=== PATIENT | female | born 1995 | race Caucasian/White ===

== ENCOUNTER 2022-01-03 20:40 | Observation (INO) ==
[2022-01-03] MEDS ORDERED: 0.9 % SODIUM CHLORIDE 1,000 ML IV ONE (20:59)
[2022-01-03 21:19] LABS: Basophils # (Auto) 0.03 K/mcL (0.00-0.30); Basophils % (Auto) 0.2 % (0.0-2.0); Eosinophils # (Auto) 0 K/mcL (0.00-0.70); Eosinophils % (Auto) 0 % (0.0-7.0); Hematocrit 42.8 % (34.1-44.9); Hemoglobin 13.9 g/dL (11.2-15.7); Lymphocytes % (Auto) 4.7 % (15.5-49.0); Mean Cell Volume 89.7 fL (80.0-100.0); Mean Corpuscular HGB Conc 32.5 g/dL (31.0-36.0); Mean Platelet Volume 11.3 fL (7.4-10.4); Monocytes # (Auto) 0.13 K/mcL (0.10-0.90); Monocytes % (Auto) 0.8 % (1.0-12.0); Neutrophils % (Auto) 94.3 % (38.0-78.0); Platelet Count 380 K/mcL (140-440); RBC 4.77 M/mcL (3.59-5.38); Red Cell Distribution Width 12.5 % (11.5-14.5)
[2022-01-03] MEDS ORDERED: ONDANSETRON 4 MG/2 ML VIAL IV ONE (21:36)
[2022-01-03] MEDS ORDERED: LACTATED RINGERS 1,000 ML IV ONE (21:36)
--- NOTE | 2022-01-03 21:40 | Emergency Department Note ---
HPI General Chief complaint: Nausea/Vomiting/Diarrhea Stated complaint: n/v/d Time Seen by Provider: 01/03/22 20:59 Source: patient Mode of arrival: ambulatory Limitations: no limitations History of Present Illness HPI Narrative: Narrative: 18-year-old type I diabetic presenting to the ED nausea vomiting diarrhea hyperglycemia. Has had DKA in the past feels similar. States she is compliant on her insulin but does admit her sugars have been high recently poorly controlled 200-300 range. She went to the bar last night had a few drinks while playing darts and then woke up this morning around 3 AM with nausea vomiting diarrhea. She is not a frequent drinker no history of withdrawal. No recent medication changes or insulin changes no other chronic medical problems. No other acute complaints. No fevers no URI symptoms no chest pain no shortness of breath no cough has some mild generalized abdominal cramps but no focal abdominal pain, no urinary symptoms no vaginal symptoms. Last menstrual period is now. She says the cause of her previous DKAwas always attributed to simply poor glucose management. No other complaints Related Data Home Medications Medication Instructions Recorded Confirmed insulin glargine 100 unit/mL 15 unit SQ BID 04/19/15 10/09/19 subcutaneous solution insulin lispro 100 unit/mL 0 unit SQ ACHS 04/19/15 10/09/19 subcutaneous solution norethindrone (contraceptive) 0.35 mg 02/11/16 02/11/16 [Jencycla] Previous Rx's Medication Instructions Recorded promethazine 12.5 mg tablet 12.5 mg PO 3-4XD #10 tab 10/09/19 Allergies Allergy/AdvReac Type Severity Reaction Status Date / Time Amoxicillin [AMOXICILLIN] Allergy Unknown ANAPHYLAXIS Verified 10/09/19 06:58 Review of Systems ROS ROS Narrative: Narrative: At least 10 systems reviewed and otherwise acutely negative except as in the HPI PFSH Narrative Patient History Narrative: Narrative: Medical/Surgical/Family History All Active Problems (Updated 01/03/22 @ 21:52 by Dayo Bush DO) Dehydration (Acute) DKA, type 1 (Acute) History of diabetes with ketoacidosis (Chronic) Type 1 diabetes mellitus (Chronic) Type 1 diabetes mellitus with hyperglycemia (Chronic) Microalbuminuric diabetic nephropathy (Chronic) Non-compliant behavior (Chronic) Medical History History of diabetes with ketoacidosis Ingrown left big toenail Kidney pain Occasional in high stress situations Microalbuminuric diabetic nephropathy Non-compliant behavior Noncompliant with home glucose monitoring Type 1 diabetes mellitus Type 1 diabetes mellitus with hyperglycemia Urinary tract infection Vitamin D deficiency Surgical History No pertinent past surgical history Family History Other No pertinent family history Social History Smoking Status: Never smoker Exam Narrative Narrative: Narrative: Constitutional: normally developed, appears ill. Head: Normocephalic, atraumatic, Eyes: No Icterus, ENT: Dry mucus membranes, Neck: Supple, Cardiac: Tachycardic heart sounds, palpable radial pulses, no peripheral edema Pulmonary: Normal respiratory effort. Breath sounds clear, no wheeze, rhonchi, rales, Gastrointestinal: Abdomen soft, non-distended, non-tender, Musculoskeletal: No gross deformities, well perfused Skin: warm, dry Neuro: Alert and oriented. General Limitations: no limitations Course Vital Signs Vital signs: Vital Signs Temperature 36.7 C 01/03/22 20:41 Pulse Rate 110 H 01/03/22 20:41 Respiratory Rate 18 01/03/22 20:41 Blood Pressure 153/88 01/03/22 20:41 Pulse Oximetry (%) 100 01/03/22 20:41 Temperature 36.7 C 01/03/22 20:41 Pulse Rate 101 H 01/03/22 21:51 Respiratory Rate 12 01/03/22 21:51 Blood Pressure 144/78 01/03/22 21:51 Pulse Oximetry (%) 100 01/03/22 21:51 MDM MDM Narrative Medical decision making narrative: Narrative: Type I diabetic hyperglycemic tachycardic most concerning for DKA work-up is initiated. She has received 1 L of NS which was already initiated. We will give her a second liter of LR Accu-Chek in the 300s awaiting further diagnostic results Blood gas does show metabolic acidosis pH 7.23 PCO2 of 31 and bicarb of 13 CBC leukocytosis of 17 likely reactive patient has no infectious complaints Electrolytes show anion gap metabolic acidosis, glucose 350, anion gap 25, bicarb 13, potassium normal 4.3 Twelve-lead EKG sinus tach 101 HI, QRS, QTc within normal, there is no acute ischemia no obvious hyperkalemic changes Presentation consistent with acute DKA we did start insulin drip she is receiving IV fluids and will continue to monitor closely every hour Accu-Cheks, will start replenishing potassium as we initiate insulin. I spoke with the hospitalist who accepts admission to ICU. pt agreeable Critical Care Time Total CriticalCare time was at least 35 minutes, excluding separately reportable procedures. There was a high probability of clinically significant/life threatening det erioration in the patient's condition which required my urgent intervention. Lab Data Result diagrams: 01/03/22 20:49 01/03/22 20:52 Labs: Lab Results 01/03/22 01/03/22 Range/Units 20:49 20:52 WBC 17.0 H (4.5-11.0) K/mcL RBC 4.77 (3.59-5.38) M/mcL Hgb 13.9 (11.2-15.7) g/dL Hct 42.8 (34.1-44.9) % MCV 89.7 (80.0-100.0) fL MCH 29.1 (26.0-34.0) pg MCHC 32.5 (31.0-36.0) g/dL RDW 12.5 (11.5-14.5) % Plt Count 380 (140-440) K/mcL MPV 11.3 H (7.4-10.4) fL Neut % (Auto) 94.3 H (38.0-78.0) % Lymph % (Auto) 4.7 L (15.5-49.0) % [place] % (Auto) 0.8 L (1.0-12.0) % Eos % (Auto) 0 (0.0-7.0) % Baso % (Auto) 0.2 (0.0-2.0) % Lymph # (Auto) 0.80 L (1.50-4.80) K/mcL [place] # (Auto) 0.13 (0.10-0.90) K/mcL Eos # (Auto) 0 (0.00-0.70) K/mcL Baso # (Auto) 0.03 (0.00-0.30) K/mcL Absolute Neutrophils 16.08 H (1.80-8.00) K/mcL Sodium 135 (133-145) mmol/L Potassium 4.3 (3.3-5.1) mmol/L Chloride 97 (96-108) mmol/L Carbon Dioxide 13 L (22-30) mmol/L Anion Gap 25.0 H (8.0-16.0) BUN 12 (6-20) mg/dL Creatinine 0.7 (0.6-1.1) mg/dL GFR Calculation 117 Glucose 350 H (70-105) mg/dL Calcium 9.6 (8.6-10.4) mg/dL Total Bilirubin 0.3 (0.1-1.0) mg/dL AST 27 (<32) U/L ALT 25 (<40) U/L Alkaline Phosphatase 84 (39-117) U/L Total Protein 7.8 (5.9-8.4) gm/dL Albumin 4.8 (3.2-5.2) gm/dL Globulin 3.0 (2.2-3.7) gm/dL Albumin/Globulin Ratio 1.6 (1.0-2.3) ED POC Tests ED POC Tests: HCG POC Results Negative Discharge Plan Patient/Caregiver Discharge Instructions Pt seen by COOKY PACKER/PA only: No Clinical Impression: DKA, type 1 Patient Disposition: Xfer As Inpt ([facility]) Condition: Critical Follow up with: Provider,Other [Primary Care Provider] - Prescriptions: No Action norethindrone (contraceptive) 0.35 mg 0RF insulin lispro 1 UNIT/0.01 ML unit 0 unit SQ ACHS 0RF insulin glargine 1 UNIT/0.01 ML unit 15 unit SQ BID 0RF promethazine 12.5 MG tablet 12.5 mg PO 3-4XD Qty: 10 0RF
[2022-01-03 21:42] LABS: ALT/SGPT 25 U/L (<40); AST/SGOT 27 U/L (<32); Albumin 4.8 gm/dL (3.2-5.2); Albumin/Globulin Ratio 1.6 (1.0-2.3); Alkaline Phosphatase 84 U/L (39-117); Bilirubin,Total 0.3 mg/dL (0.1-1.0); Blood Urea Nitrogen 12 mg/dL (6-20); Calcium 9.6 mg/dL (8.6-10.4); Carbon Dioxide 13 mmol/L (22-30); Chloride 97 mmol/L (96-108); Glomerular Filtration Rate 117; Glucose 350 mg/dL (70-105)
[2022-01-03] MEDS ORDERED: POTASSIUM CHLORIDE 20 MEQ in DEXTROSE 5% IN WATER 250 ML IV ONE (22:00)
[2022-01-03] MEDS ORDERED: INSULIN REGULAR, HUMAN 50 UNIT in 0.9 % SODIUM CHLORIDE 99.5 ML IV SCH (22:00)
[2022-01-03] MEDS ORDERED: POTASSIUM CHLORIDE 40 MEQ in DEXTROSE 5% IN WATER 500 ML IV PRN (22:35)
[2022-01-03] MEDS ORDERED: ACETAMINOPHEN 325 MG TABLET PO PRN (22:38)
--- NOTE | 2022-01-03 22:44 | Internal Med History&Physical ---
HPI History of Present Illness Patient information: Note initiated : 01/03/22 at 10:40 pm Service Date, if different from initiated Date: [] Patient: Rafaela Candelaria a 26 y/o F admitted on for n/v/d. Chief Complaint: [] Chief complaint: Nausea, vomiting, History of present illness: Ms. Candelaria is a 26 year old F with past medical history of type 1 diabetes mellitus, who presents to ER today with nausea vomiting and symptoms of DKA. She has had DKA twice in the past and reports this symptoms are similar. She went to the bar last night and had a few drinks, woke up this morning around 3 AM with symptoms as above. She is very adherent with her insulin regimen. Prior to her arrival to ER, she injected 18 units of Lantus and 4 units of Humalog. She has had 2 L of IV fluid boluses at this time and states she still feels dehydrated lousy. Denies any abdominal pain. Denies any fevers, chills, pain. Smokes occasional marijuana. Once a week drinker. No other drug use. Constitutional Constitutional: Absent anorexia, chills, fatigue, fever(s), headache(s), lethargy, malaise or night sweats Cardiovascular Cardiovascular: Absent chest pain, chest pain at rest, diaphoresis, irregular heart rhythm or lightheadedness Respiratory Respiratory: Absent hemoptysis, wheezing or excessive phlegm production Gastrointestinal Gastrointestinal: Absent diarrhea, hematemesis, melena, nausea or vomiting Genitourinary Genitourinary: Absent dysuria Neurological Neurological: Absent abnormal gait, abnormal speech, confusion, dizziness or headache(s) PFSH PFSH All Active Problems Dehydration (Acute) DKA, type 1 (Acute) History of diabetes with ketoacidosis (Chronic) Type 1 diabetes mellitus (Chronic) Type 1 diabetes mellitus with hyperglycemia (Chronic) Microalbuminuric diabetic nephropathy (Chronic) Non-compliant behavior (Chronic) Medical History History of diabetes with ketoacidosis Ingrown left big toenail Kidney pain Occasional in high stress situations Microalbuminuric diabetic nephropathy Non-compliant behavior Noncompliant with home glucose monitoring Type 1 diabetes mellitus Type 1 diabetes mellitus with hyperglycemia Urinary tract infection Vitamin D deficiency Surgical History No pertinent past surgical history Family History Other No pertinent family history MEDS/ALLERGIES Home Medications and Allergies Home Medications Medication Instructions Recorded Confirmed Type insulin glargine 100 unit/mL 15 unit SQ BID 04/19/15 10/09/19 History subcutaneous solution insulin lispro 100 unit/mL 0 unit SQ ACHS 04/19/15 10/09/19 History subcutaneous solution norethindrone (contraceptive) 0.35 mg 02/11/16 02/11/16 History [Jencycla] promethazine 12.5 mg tablet 12.5 mg PO 3-4XD #10 tab 10/09/19 Rx Allergies Allergy/AdvReac Type Severity Reaction Status Date / Time Amoxicillin [AMOXICILLIN] Allergy Unknown ANAPHYLAXIS Verified 10/09/19 06:58 EXAM Constitutional Vitals: Temp Pulse Resp BP Pulse Ox 98.1 F 101 H 12 144/78 100 01/03/22 20:41 01/03/22 21:51 01/03/22 21:51 01/03/22 21:51 01/03/22 21:51 General appearance: average body habitus, cooperative and no acute distress Head Head exam: Present atraumatic and normocephalic Eye Eye exam: Present normal appearance ENT ENT exam: Present mucous membranes moist Respiratory Respiratory exam: Present normal respiratory exam and CTAB; Absent accessory muscle use, rales, respiratory distress, stridor or wheezes Cardiovascular Cardiovascular exam: Present RRR and tachycardia; Absent normal rate and rhythm, bradycardia, diastolic murmur, gallop, irregular rhythm or rubs GI/Abdominal GI/Abdominal exam: Present normal bowel sounds and soft; Absent distended, guarding or rebound Expanded Lower Extremity Exam Hip exam: Present normal inspection; Absent swelling Back Exam Back exam: Present normal inspection; Absent CVA tenderness (L), CVA tenderness (R), paraspinal tenderness or vertebral tenderness Neurological Exam Neurological exam: Present alert and oriented X3; Absent abnormal gait or motor sensory deficit DATA Data Completed and Pending Labs: Labs from last 24 hours 01/03/22 01/03/22 01/03/22 20:52 20:52 20:52 WBC RBC Hgb Hct MCV MCH MCHC RDW Plt Count MPV Neut % (Auto) Lymph % (Auto) [place] % (Auto) Eos % (Auto) Baso % (Auto) Lymph # (Auto) [place] # (Auto) Eos # (Auto) Baso # (Auto) Absolute Neutrophils Sodium 135 Potassium 4.3 Chloride 97 Carbon Dioxide 13 L Anion Gap 25.0 H BUN 12 Creatinine 0.7 GFR Calculation 117 Glucose 350 H Calcium 9.6 Total Bilirubin 0.3 AST 27 ALT 25 Alkaline Phosphatase 84 Total Protein 7.8 Albumin 4.8 Globulin 3.0 Albumin/Globulin Ratio 1.6 Lipase 9 Beta-Hydroxybutyrate Pending 01/03/22 20:49 WBC 17.0 H RBC 4.77 Hgb 13.9 Hct 42.8 MCV 89.7 MCH 29.1 MCHC 32.5 RDW 12.5 Plt Count 380 MPV 11.3 H Neut % (Auto) 94.3 H Lymph % (Auto) 4.7 L [place] % (Auto) 0.8 L Eos % (Auto) 0 Baso % (Auto) 0.2 Lymph # (Auto) 0.80 L [place] # (Auto) 0.13 Eos # (Auto) 0 Baso # (Auto) 0.03 Absolute Neutrophils 16.08 H Sodium Potassium Chloride Carbon Dioxide Anion Gap BUN Creatinine GFR Calculation Glucose Calcium Total Bilirubin AST ALT Alkaline Phosphatase Total Protein Albumin Globulin Albumin/Globulin Ratio Lipase Beta-Hydroxybutyrate A/P Narrative A/P Narrative: Ms. Rafaela Bloom is 26-year-old female with type 1 diabetes admitted for DKA with anion gap of 25. #Diabetic ketoacidosis Leukocytosis likely from diabetic ketoacidosis as well. Anion gap 25 blood glucose 350 on admission Beta hydroxybutyrate pending at the time On 01/03 evening she has taken 18 units of Lantus and 4 units of Humalog prior to presentation to ER Started on insulin drip in the ER-continue As needed potassium repletion ordered (KCL rider 40 meq). Potassium 40 mEq twice a day PO ordered as well. CBC and BMP in the morning Received 2 L of IV fluids in the emergency room. 2 more liters of LR ordered at 250 cc an hour. Resume Lantus 18 units twice daily in the morning. Insulin drip can continue in the background in place of Humalog , until anion gap closed. DVT prophylaxis-no indication low risk Time Spent With Patient Time: Total time spent is greater than 50% in coordination of care (as documented) at patient's floor/unit and/or counseling patient: Total time spent with greater than 50% in coordination of care (as documented) at patient's floor/unit and/or counseling patient:: 35 - 50 minutes
[2022-01-04] MEDS: DEXTROSE 5%-1/2NS 1,000 ML IV SCH ×2 (00:07→10:59)
[2022-01-04] MEDS: ONDANSETRON 4 MG/2 ML VIAL IV PRN ×2 (00:27→08:52)
[2022-01-04] MEDS ORDERED: ONDANSETRON 4 MG/2 ML VIAL ONE (00:33)
[2022-01-04] MEDS: LACTATED RINGERS 2,000 ML IV SCH ×2 (01:33→06:10)
[2022-01-04] MEDS: POTASSIUM CHLORIDE 20 MEQ TABLET PO SCH ×3 (01:34→08:52)
[2022-01-04] MEDS ORDERED: 0.9 % SODIUM CHLORIDE 10 ML SYRINGE IV SCH (06:00)
[2022-01-04 06:37] LABS: Basophils # (Auto) 0.03 K/mcL (0.00-0.30); Basophils % (Auto) 0.2 % (0.0-2.0); Eosinophils # (Auto) 0.01 K/mcL (0.00-0.70); Eosinophils % (Auto) 0.1 % (0.0-7.0); Hemoglobin 11.3 g/dL (11.2-15.7); Lymphocytes # (Auto) 1.77 K/mcL (1.50-4.80); Lymphocytes % (Auto) 12.6 % (15.5-49.0); Mean Cell Volume 90.2 fL (80.0-100.0); Mean Corpuscular HGB Conc 32.3 g/dL (31.0-36.0); Mean Platelet Volume 11.3 fL (7.4-10.4); Monocytes # (Auto) 1.06 K/mcL (0.10-0.90); Monocytes % (Auto) 7.5 % (1.0-12.0); Neutrophils % (Auto) 79.6 % (38.0-78.0); Platelet Count 310 K/mcL (140-440); RBC 3.88 M/mcL (3.59-5.38); Red Cell Distribution Width 12.7 % (11.5-14.5); WBC 14.1 K/mcL (4.5-11.0)
[2022-01-04 06:49] LABS: Blood Urea Nitrogen 10 mg/dL (6-20); Calcium 8.2 mg/dL (8.6-10.4); Carbon Dioxide 17 mmol/L (22-30); Chloride 106 mmol/L (96-108); Glomerular Filtration Rate 131; Glucose 101 mg/dL (70-105)
[2022-01-04] MEDS ORDERED: INSULIN GLARGINE, HUMAN 1 UNIT/0.01 ML SQ SCH (09:00)
--- NOTE | 2022-01-04 10:51 | Discharge Summary ---
Discharge Provider Provider Patient information: Note initiated : 01/04/22 at 10:46 am Service Date, if different from initiated Date: [] Patient: Rafaela Candelaria 26 y/o F admitted on 01/03/22 for n/v/d. Chief Complaint: [] Date of admission: 01/03/22 23:32 Discharge date: 01/04/22 Primary care physician: Other Provider Admitting clinician: Concetta Carter Attending physician on admission: Concetta Carter Consults: 01/03/22 Consult to Physician [CONS] Stat Comment: Consulting Provider: Concetta Carter Reason For Exam: Physician to Consult Attending physician on discharge: Concetta Carter Discharging clinician: Concetta Carter Discharge Meds Discharge Medications Home Medications insulin glargine 100 unit/mL subcutaneous solution 18 unit SQ BID 04/19/15 [History Confirmed 01/04/22 Last Taken 01/03/22] insulin lispro 100 unit/mL subcutaneous solution 0 unit SQ ACHS 04/19/15 [History Confirmed 01/04/22 Last Taken Unknown] etonogestrel 68 mg subdermal implant (Nexplanon) 1 implant SUBDERMAL ONCE 01/04/22 [History Confirmed 01/04/22 Last Taken Unknown] ondansetron 4 mg disintegrating tablet 4 mg PO Q8H PRN #30 tab 01/04/22 [Rx Last Taken Unknown] COURSE Hospital Course Hospital course: Ms. Candelaria is a 26 year old F with past medical history of type 1 diabetes mellitus, who presents to ER today with nausea vomiting and symptoms of DKA. She has had DKA twice in the past and reports this symptoms are similar. She went to the bar last night and had a few drinks, woke up this morning around 3 AM with symptoms as above. She is very adherent with her insulin regimen. Prior to her arrival to ER, she injected 18 units of Lantus and 4 units of Humalog. She was treated with IV hydration, and insulin drip until her anion gap closed the next morning. She was discharged after 24 hours of admission. She can revert to her usual Lantus 18 units twice daily and premeal Humalog schedule. Discharge diagnosis: Diabetic ketoacidosis Time Spent with Patient Time attestation: Total time spent providing and/or coordinating discharge services: Time spent: Greater than 30 minutes EXAM Constitutional Vitals: Temp Pulse Resp BP Pulse Ox 99.4 F H 89 22 124/78 100 01/04/22 08:01 01/04/22 10:07 01/04/22 10:07 01/04/22 10:01 01/04/22 10:07 General appearance: average body habitus, cooperative and no acute distress Head Head exam: Present atraumatic and normocephalic Eye Eye exam: Present normal appearance ENT ENT exam: Present mucous membranes moist Respiratory Respiratory exam: Present normal respiratory exam and CTAB; Absent accessory muscle use, rales, respiratory distress, stridor or wheezes Cardiovascular Cardiovascular exam: Present normal rate and rhythm and RRR; Absent bradycardia, diastolic murmur, gallop, irregular rhythm or rubs GI/Abdominal GI/Abdominal exam: Present normal bowel sounds and soft; Absent distended, guarding or rebound Expanded Lower Extremity Exam Hip exam: Present normal inspection; Absent swelling Back Exam Back exam: Present normal inspection; Absent CVA tenderness (L), CVA tenderness (R), paraspinal tenderness or vertebral tenderness Neurological Exam Neurological exam: Present alert and oriented X3; Absent abnormal gait or motor sensory deficit Discharge Data Data Completed and Pending Labs on day of discharge: Labs from last 24 hours 01/04/22 01/04/22 01/03/22 05:36 05:36 20:52 WBC 14.1 H RBC 3.88 Hgb 11.3 Hct 35.0 MCV 90.2 MCH 29.1 MCHC 32.3 RDW 12.7 Plt Count 310 MPV 11.3 H Neut % (Auto) 79.6 H Lymph % (Auto) 12.6 L [place] % (Auto) 7.5 Eos % (Auto) 0.1 Baso % (Auto) 0.2 Lymph # (Auto) 1.77 [place] # (Auto) 1.06 H Eos # (Auto) 0.01 Baso # (Auto) 0.03 Absolute Neutrophils 11.20 H Sodium 135 Potassium 4.1 Chloride 106 Carbon Dioxide 17 L Anion Gap 12.0 BUN 10 Creatinine 0.5 L GFR Calculation 131 Glucose 101 Calcium 8.2 L Total Bilirubin AST ALT Alkaline Phosphatase Total Protein Albumin Globulin Albumin/Globulin Ratio Lipase Beta-Hydroxybutyrate 5.52 H 01/03/22 01/03/22 01/03/22 20:52 20:52 20:49 WBC 17.0 H RBC 4.77 Hgb 13.9 Hct 42.8 MCV 89.7 MCH 29.1 MCHC 32.5 RDW 12.5 Plt Count 380 MPV 11.3 H Neut % (Auto) 94.3 H Lymph % (Auto) 4.7 L [place] % (Auto) 0.8 L Eos % (Auto) 0 Baso % (Auto) 0.2 Lymph # (Auto) 0.80 L [place] # (Auto) 0.13 Eos # (Auto) 0 Baso # (Auto) 0.03 Absolute Neutrophils 16.08 H Sodium 135 Potassium 4.3 Chloride 97 Carbon Dioxide 13 L Anion Gap 25.0 H BUN 12 Creatinine 0.7 GFR Calculation 117 Glucose 350 H Calcium 9.6 Total Bilirubin 0.3 AST 27 ALT 25 Alkaline Phosphatase 84 Total Protein 7.8 Albumin 4.8 Globulin 3.0 Albumin/Globulin Ratio 1.6 Lipase 9 Beta-Hydroxybutyrate Discharge Plan Patient/Caregiver Discharge Instructions Activity: resume usual activities as tolerated Diet: Consistent Carbohydrate Instructions: Diabetic Ketoacidosis (GEN) Prescriptions: New ondansetron 4 mg tablet,disintegrating 4 mg PO Q8H PRN (Reason: nausea and vomiting) Qty: 30 0RF Continued insulin lispro 1 UNIT/0.01 ML unit 0 unit SQ ACHS 0RF insulin glargine 1 UNIT/0.01 ML unit 18 unit SQ BID 0RF Label Comments: pt states that she takes 18 units twice a day Nexplanon 68 mg Implant 1 implant SUBDERMAL ONCE 0RF Rx Instructions: Implanted in left arm Discontinued promethazine 12.5 MG tablet 12.5 mg PO 3-4XD Qty: 10 0RF Label Comments: Pt states that she,"does not take" this medicine. Follow Up Plan Follow up with: Aminta Kamara PA-C [Physician] - 01/06/22 1:00 pm (Continue with your current appointment) Patient Disposition: Home, Self-Care Prognosis: Critical Overall status at discharge: patient is back to baseline Discharge Orders: Discharge Order (Routine); Ordered 01/04/22 Ordered By: Concetta SÁNCHEZ VTE Deep Vein Thrombosis/Pulmonary Embolism Present on Admission: No
--- NOTE | 2022-01-04 11:37 | EKG ---
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 Measurements Intervals [place] Rate: 101 P: 84 CT: 140 QRS: 63 QRSD: 95 T: 31 QT: 364 QTc: 472 Interpretive Statements Fast sinus arrhythmia Probably normal for age Electronically Signed On 01-04-2022 11:37:01 PDT by Sebastian Rendon M.D. /[id number]
== END 2022-01-04 11:30 | disposition home or self-care (01) ==
LOC: ICU 20:40 → ED 20:40 → ICU 23:32
PROVIDERS: ADMIT Internal Medicine Medical Oncology; ATTEND Internal Medicine Medical Oncology